=== PATIENT | male | born 1970 ===

== ENCOUNTER 2021-12-07 15:53 | Emergency (ER) | payer OTHER ==
[2021-12-07 17:20] VITALS: BP 129/77
== END 2021-12-08 13:44 | disposition left against medical advice (07) ==
LOC: ED 15:53
DX: Z04.1 Encounter for examination and observation following transport accident (principal); Z53.21 Procedure and treatment not carried out due to patient leaving prior to being seen by health care provider; V87.7XXA Person injured in collision between other specified motor vehicles (traffic), initial encounter; Y93.89 Activity, other specified; Y92.488 Other paved roadways as the place of occurrence of the external cause; Y99.8 Other external cause status